=== PATIENT | female | born 1960 | race Caucasian/White ===

== ENCOUNTER 2020-08-06 11:22 | Emergency (ER) | payer MEDICARE, SELFPAY ==
--- NOTE | 2020-08-06 11:47 | ED.GENADULT ---
HPI - General Adult General Chief complaint: Dental/Oral Stated complaint: Infection in Jaw Source: patient Mode of arrival: ambulatory Limitations: no limitations History of Present Illness HPI narrative: Sylwia is a 60F with no significant PMH admitted that presented to the ED with worsening left lower dental pain and swelling. She has an implant and gets frequent infections. Over the last few days she has had increasing pain and swelling as well as nausea. No dysphagia, trouble breathing, vomiting, CP or SOB. Related Data Allergies Allergy/AdvReac Type Severity Reaction Status Date / Time amoxicillin Allergy Rash Verified 08/06/20 12:06 Iodinated Contrast Media Allergy Rash Verified 08/06/20 12:06 tetracycline Allergy Swelling Verified 08/06/20 12:06 erythromycin base AdvReac Diarrhea Verified 08/06/20 12:06 [From Erythrocin] ibuprofen AdvReac Diarrhea Verified 08/06/20 12:06 methylprednisolone AdvReac Diarrhea Verified 08/06/20 12:06 Review of Systems Constitutional: Constitutional: Denies chills and Denies fever(s) Eyes: Eyes: Reports no additional eye complaints ENT: Reports as per HPI Cardiovascular: Cardiovascular: Reports no additional cardiovascular complaints Respiratory: Respiratory: Reports no additional respiratory complaints Gastrointestinal: Gastrointestinal: Reports no additional gastrointestinal complaints Genitourinary: Genitourinary: Reports no additional female genitourinary complaints Musculoskeletal: Musculoskeletal: Reports no additional musculoskeletal complaints Integumentary/Breasts: Skin/Breast: Reports system reviewed and no additional complaints, except as docu Neurologic: Reports system reviewed and no additional complaints, except as documented Psychiatric: Psychiatric: Reports no additional psychiatric complaints Endocrine: Endocrine: Reports no additional endocrine complaints Hematologic/Lymphatic: Hematologic/Lymphatic: Reports no additional hematologic/lymphatic complaints Allergic/Immunologic: Allergic/Immunologic: Reports no additional allergic/immunologic complaints Exam Const: General: no acute distress and alert Orientation/consciousness: patient oriented x3 Limitations: No altered mental status HENMT: Other: Normocephalic, atraumatic. Left cheek was warm, swollen and TTP. She has poor dentition on the left lower jaw that is TTP and swollen. Bilateral submandibular lymphadenopathy Eyes: Conjunctivae: conjunctivae normal Neck: Neck: normal visual inspection and lymphadenopathy (anterior cervical lymphadenopathy ) Chest: Chest palpation & inspection: normal inspection of the chest Resp: Effort & Inspection: normal respiratory effort Cardio: Rate: regular rate GI: Inspection: non-distended GI Palp: Yes Soft to palpation and No Tenderness to palpation present (GI) Skin: General skin exam: normal color Rashes: no rashes Neuro: General: patient oriented x3 and moves all extremities Extrem: General: normal to inspection Psych: Appearance: grossly normal Mental Status: mental status grossly normal Course Course Emergency Course: Sylwia was evaluated. She was given toradol for pain and a dose of clindamycin. A script was sent to the pharmacy for [place] and Clindamycin. She was discharged and instructed to f/u with her Dentist. Discharge Plan Discharge Clinical Impression: Abscess, dental Patient Disposition: Home, Self-Care Condition: Stable Instructions: Dental Abscess (ED) Additional Instructions: Please return to the ED for any new, concerning, or worsening infections. Prescriptions: New clindamycin HCl 300 mg capsule 300 mg PO Q8H Qty: 15 RF: 0 hydrocodone-acetaminophen [[place]] 5-325 mg tablet 1 tablet PO Q8H PRN (Reason: pain) Qty: 10 RF: 0 Follow-up/Referrals: UNKNOWN,DOCTOR [Primary Care Provider] - Stand Alone Forms: Work/School Release IP
[2020-08-06 11:58] VITALS: BP 160/77; PULSE 59; RESP 18; TEMP 36.7; O2SAT 95
[2020-08-06] MEDS: KETOROLAC 30 MG/ML VIAL (*BKC) IM (12:21)
[2020-08-06] MEDS: CLINDAMYCIN HCL 150 MG CAP 450 MG PO (12:22)
[2020-08-06 12:55] VITALS: BP 147/93; PULSE 55; RESP 20; O2SAT 95
== END 2020-08-06 13:03 | disposition home or self-care (01) ==
PROVIDERS: Emergency Provider Family Medicine
DX: K04.7 Periapical abscess without sinus (principal)
CPT/HCPCS: 96372; 99283; A9270; J1885

== ENCOUNTER 2021-09-09 14:00 | Emergency (ER) | payer MEDICARE, MEDICAID, SELFPAY ==
[2021-09-09 14:05] VITALS: BP 164/91; PULSE 67; RESP 18; TEMP 35.7; O2SAT 97
--- NOTE | 2021-09-09 14:10 | ED.NAVMDI ---
HPI - Nausea/Vomiting/Diarrhea General Chief complaint: Weakness Stated complaint: nausea/blood pressure high/weakness/not eating Source: patient and RN notes reviewed Mode of arrival: ambulatory Limitations: no limitations History of Present Illness MD elicited complaint: nausea Onset (ago): week(s) (1) Associated nausea: Yes Associated abdominal pain: No Severity: moderate Exacerbating factors: eating Relieving factors: none Associated symptoms: headaches, loss of appetite, malaise, dysuria ( Only increased urinary frequency with small amounts) and other (elevated BP) Related Data Home Medications Medication Instructions Recorded Confirmed amlodipine 5 mg PO DAILY 09/09/21 09/09/21 Allergies Allergy/AdvReac Type Severity Reaction Status Date / Time amoxicillin Allergy Rash Verified 08/06/20 12:06 Iodinated Contrast Media Allergy Rash Verified 08/06/20 12:06 tetracycline Allergy Swelling Verified 08/06/20 12:06 erythromycin base AdvReac Diarrhea Verified 08/06/20 12:06 [From Erythrocin] ibuprofen AdvReac Diarrhea Verified 08/06/20 12:06 methylprednisolone AdvReac Diarrhea Verified 08/06/20 12:06 Review of Systems Review of Systems: All systems reviewed & are unremarkable except as noted in HPI and below Constitutional: Constitutional: Denies chills and Denies fever(s) ENT: Denies sore throat Respiratory: Respiratory: Denies cough and Denies dyspnea Gastrointestinal: Gastrointestinal: Denies diarrhea and Denies vomiting Genitourinary: Genitourinary: Reports nocturia and Denies dysuria Musculoskeletal: Musculoskeletal: Denies myalgias PMFSH Past Medical History Medical History (Updated 09/09/21 @ 16:39 by Abdon Schwartz MD) Hypertension Surgical History Surgical History (Updated 09/09/21 @ 14:45 by Abdon Schwartz MD) H/O neck surgery H/O splenectomy H/O: hysterectomy History of back surgery Hx of cholecystectomy Social History Social History (Updated 09/09/21 @ 14:45 by Abdon Schwartz MD) Smoking packs per day: 1 Smoking cigarettes per day: 20.0 Smoking status: Current every day smoker Tobacco type: cigarettes Alcohol intake: never Substance use: current Substance use type: marijuana Exam Const: General: healthy appearing, no acute distress and alert Nutritional Appearance: well nourished and thin Orientation/consciousness: patient oriented x3 HENMT: Head: normal to inspection Ears: external ears normal Eyes: Cornea: corneas normal Pupils: Equal, round and reactive pupils present EOM: EOMs intact bilaterally Resp: Effort & Inspection: normal respiratory effort Auscultation: clear to auscultation bilaterally Cardio: Rate: regular rate Rhythm: regular rhythm GI: GI Palp: Yes Soft to palpation, No Tenderness to palpation present (GI) and No Guarding due to palpation present (GI) Auscultation: normal bowel sounds Back/Spine/Pelvis: Cervical Spine: cervical ROM normal Thoracic/Lumbar Spine: thoraco-lumbar ROM normal Skin: General skin exam: normal color Rashes: no rashes Neuro: General: patient oriented x3, moves all extremities, no meningeal signs, no focal motor deficits and CN's II-XI intact bilaterally Speech: normal speech Gait exam (Neuro): Normal gait present Extrem: General: normal to inspection and no clubbing, cyanosis or edema Psych: Appearance: grossly normal and well kempt Mental Status: mental status grossly normal Affect: normal affect Attitude: cooperative Thought content: Yes Normal thought content present Course Vital Signs Vital signs: Vital Signs Temperature 35.7 C L 09/09/21 14:05 Pulse Rate 67 09/09/21 14:05 Respiratory Rate 18 09/09/21 14:05 Blood Pressure 164/91 H 09/09/21 14:05 Pulse Oximetry 97 09/09/21 14:05 Temperature 36.4 C 09/09/21 16:52 Pulse Rate 76 09/09/21 16:52 Respiratory Rate 20 09/09/21 16:52 Blood Pressure 135/91 H 09/09/21 16:52 Pulse Oximetry 97 09/09/21 16
[2021-09-09 15:04] LABS: Add Urine Microscopic? YES; Appearance Urine Clear (Clear); Bilirubin Urine Negative (Negative); Blood Urine Negative (Negative); Color Urine Light Yellow (Yellow); Glucose Urine UA Negative (Negative); Ketones Urine Negative (Negative); Leukocyte Esterase Ur Trace LEU/UL (Negative); Nitrate Urine Negative (Negative); Protein Urine Negative (Negative); Specific Grav Ur <= 1.005 (1.010-1.020); Urobilinogen Urine 0.2 mg/dL (0.2-1.0)
[2021-09-09] MEDS: PROMETHAZINE HCL 25 MG/ML AMPUL IM (15:07)
[2021-09-09 15:13] LABS: Bacteria Urine Trace /hpf; RBC Urine 0-2 /hpf (0-2); Squamous Epithelial Cell Urine Rare /hpf (Few); WBC Urine 0-3 /hpf (0-3)
[2021-09-09 15:14] LABS: Hematocrit 45.1 % (35.0-49.0); Hemoglobin 14.8 g/dL (12.0-15.0); Mean Corpuscular HGB Conc 32.8 g/dL (32.0-36.0); Mean Corpuscular Hemoglobin 34.1 pg (27.0-31.0); Mean Corpuscular Volume 103.9 fL (78.0-102.0); Mean Platelet Volume 12.3 fl (9.2-11.8); Platelet Count Result 46 K/mm3 (150-420); Red Blood Count 4.34 M/mm3 (4.20-5.40); Red Cell Distribution Width 12.6 % (11.6-14.4); White Blood Count 12.9 K/mm3 (4.8-10.8)
[2021-09-09 15:38] LABS: SARS-CoV-2 RNA PCR Negative (Negative)
[2021-09-09 15:44] LABS: Band Neutrophils Percent 0 % (0-6); Basophils Percent Manual 0 % (0-1); Eosinophils Percent Manual 0 % (1-6); Lymphocytes Absolute Manual 7.61 K/mm3 (1.1-4.5); Lymphocytes Percent Manual 59 % (18-44); Monocytes Absolute Manual 0.64 K/mm3 (0.1-0.90); Monocytes Percent Manual 5 % (3-9); Neutrophils Absolute Manual 4.64 K/mm3 (1.7-7.2); Neutrophils Percent Manual 36 % (46-73); Total Cells Counted 100
[2021-09-09 15:46] LABS: Platelet Estimate Decreased (Adequate)
[2021-09-09 15:58] LABS: Alanine Aminotransferase 29 U/L (14-59); Albumin Level 4.1 g/dL (3.4-5.0); Alkaline Phosphatase 102 U/L (46-116); Anion Gap 15 mmol/L (8-16); Aspartate Amino Transferase 33 U/L (15-37); Bilirubin,Total 0.5 mg/dL (0.00-1.00); Blood Urea Nitrogen 14 mg/dL (7-18); Calcium 9.4 mg/dL (8.5-10.1); Carbon Dioxide 22 mmol/L (21-32); Chloride 99 mmol/L (98-108); Estimated Glomerular Filt Rate > 60; Ferritin 113 ng/mL (8-252); Glucose 98 mg/dL (70-99); Magnesium 2.3 mg/dL (1.8-2.4); Osmolality Calculated 282 mOsm/kg (285-295); Potassium 5.1 mmol/L (3.5-5.1); Sodium 136 mmol/L (136-145); Total Protein 7.8 g/dL (6.4-8.2)
[2021-09-09 16:02] LABS: CRP < 0.2 mg/dL (0.0-0.9)
[2021-09-09 16:52] VITALS: BP 135/91; PULSE 76; RESP 20; TEMP 36.4; O2SAT 97
== END 2021-09-09 16:45 | disposition home or self-care (01) ==
PROVIDERS: Emergency Provider Emergency Medicine; PCP Family Medicine
DX: A08.4 Viral intestinal infection, unspecified (principal); Z20.822 Contact with and (suspected) exposure to COVID-19; I10 Essential (primary) hypertension; F17.200 Nicotine dependence, unspecified, uncomplicated
CPT/HCPCS: 36415; 80053; 81001; 82728; 83735; 85025; 86140; 96372; 99283; C9803; J2550; U0003; U0005

== ENCOUNTER 2022-06-30 19:23 | Emergency (ER) | payer MEDICARE, MEDICAID, SELFPAY ==
--- NOTE | ~2022-06-30 | XR_ITS ---
EXAMINATION: XR chest 1V portable Exam Date/Time: 06/30/2022 21:10 JAZZ SINGER HISTORY: dyspnea, cough Comparison: None available. RESULT: Lines, tubes, and devices: Partially visualized cervical fusion hardware. Cholecystectomy clips. Lungs and pleura: 12 mm nodular opacity projecting over the left inferior lung. Cardiomediastinal silhouette: Unremarkable. Other: No acute osseous or upper abdominal finding. IMPRESSION: No acute cardiopulmonary process. Likely 12 mm left lower lung pulmonary nodule, recommend comparison to outside studies, if available, to evaluate stability. If comparisons aren't available, recommend low-dose noncontrast CT of the chest for further evaluation. Reviewed, dictated and finalized at location K. SINGER IMPRESSION: No acute cardiopulmonary process. Likely 12 mm left lower lung pulmonary nodule , recommend comparison to outside studies, if available, to evaluate stability. If comparisons aren't available, recommend low-dose noncontrast CT of the ches t for further evaluation.
[2022-06-30 19:30] VITALS: BP 150/90; PULSE 66; RESP 16; TEMP 37; O2SAT 98
--- NOTE | 2022-06-30 21:06 | ED.GENADULT ---
HPI - General Adult General Chief complaint: Upper Respiratory Infection Stated complaint: difficulty breathing, sinus infection Time Seen by Provider: 06/30/22 20:19 History of Present Illness HPI narrative: Sylwia is a 62F with a PMH of neck surgery, hysterectomy, seasonal allergies, tobacco abuse and HTN that presented to the ED with a few concerns. She has had some SOB, coughing, burning eyes off and on for 6 weeks. She could not get into her PCP. She denies any CP, lightheadedness, nausea or vomiting. No sick contacts. Related Data Allergies Allergy/AdvReac Type Severity Reaction Status Date / Time amoxicillin Allergy Rash Verified 08/06/20 12:06 Iodinated Contrast Media Allergy Rash Verified 08/06/20 12:06 tetracycline Allergy Swelling Verified 08/06/20 12:06 erythromycin base AdvReac Diarrhea Verified 08/06/20 12:06 [From Erythrocin] ibuprofen AdvReac Diarrhea Verified 08/06/20 12:06 methylprednisolone AdvReac Diarrhea Verified 08/06/20 12:06 red dye AdvReac Rash Verified 06/30/22 20:50 sulfamethoxazole AdvReac Rash Verified 06/30/22 20:50 [From Bactrim] trimethoprim [From Bactrim] AdvReac Rash Verified 06/30/22 20:50 Review of Systems Review of Systems: All systems reviewed & are unremarkable except as noted in HPI and below PMFSH Past Medical History Medical History Hypertension Surgical History Surgical History H/O neck surgery H/O splenectomy H/O: hysterectomy History of back surgery Hx of cholecystectomy Social History Social History Smoking packs per day: 1 Smoking cigarettes per day: 20.0 Smoking status: Current every day smoker Tobacco type: cigarettes Alcohol intake: never Substance use: current Substance use type: marijuana Exam Const: General: healthy appearing and no acute distress Nutritional Appearance: well nourished Orientation/consciousness: patient oriented x3 HENMT: Head: normal to inspection Ears: external ears normal Face/Nose/Sinus: Normal external nose present Eyes: Conjunctivae: conjunctivae normal Pupils: Equal, round and reactive pupils present EOM: EOMs intact bilaterally Neck: Neck: normal visual inspection Chest: Chest palpation & inspection: normal inspection of the chest Resp: Effort & Inspection: normal respiratory effort Other: Diffuse scant wheezing but good air flow Cardio: Rate: regular rate Rhythm: regular rhythm GI: Inspection: non-distended GI Palp: Yes Soft to palpation, No Tenderness to palpation present (GI) and No Guarding due to palpation present (GI) Skin: General skin exam: normal color Neuro: General: patient oriented x3 and moves all extremities Extrem: General: normal to inspection Psych: Mental Status: mental status grossly normal Course Course Emergency Course: ordered swabs, labs and CXR EXAMINATION:? XR chest 1V portable Exam Date/Time:? 06/30/2022 21:10 [employer]ON SALES CONSULTANT HISTORY: dyspnea, cough ? Comparison:? None available. RESULT: Lines, tubes, and devices:? Partially visualized cervical fusion hardware. Cholecystectomy clips. Lungs and pleura:? 12 mm nodular opacity projecting over the left inferior lung. Cardiomediastinal silhouette:? Unremarkable. Other:? No acute osseous or upper abdominal finding. IMPRESSION: No acute cardiopulmonary process. Likely 12 mm left lower lung pulmonary nodule, recommend comparison to outside studies, if available, to evaluate stability. If comparisons aren't available, recommend low-dose noncontrast CT of the chest for further evaluation. Labs showed leukocytosis but were otherwise normal. CXR showed the nodule. I discussed with her how she needs to see her PCP about this to have it compared to previous imaging or get an out patient CT. With regards to her cough, wheezing, congestion and smoking history sh
[2022-06-30 21:28] LABS: Hematocrit 39.8 % (35.0-49.0); Hemoglobin 13.2 g/dL (12.0-15.0); Mean Corpuscular HGB Conc 33.2 g/dL (32.0-36.0); Mean Corpuscular Hemoglobin 32.8 pg (27.0-31.0); Mean Corpuscular Volume 98.8 fL (78.0-102.0); Mean Platelet Volume 11.2 fl (9.2-11.8); Platelet Count Result 321 K/mm3 (150-420); Red Blood Count 4.03 M/mm3 (4.20-5.40); Red Cell Distribution Width 13.2 % (11.6-14.4); White Blood Count 17.4 K/mm3 (4.8-10.8)
[2022-06-30 21:40] LABS: Strep Group A RT-PCR Negative (Negative)
[2022-06-30 21:46] LABS: Influenza A QL RT-PCR Negative (Negative); Influenza B QL RT-PCR Negative (Negative); SARS-CoV-2 RNA PCR Negative (Negative)
[2022-06-30 21:49] LABS: Band Neutrophils Percent 0 % (0-6); Basophils Absolute Manual 0.17 K/mm3 (0-0.1); Basophils Percent Manual 1 % (0-1); Eosinophils Absolute Manual 0.17 K/mm3 (0.02-0.5); Eosinophils Percent Manual 1 % (1-6); Lymphocytes Absolute Manual 6.43 K/mm3 (1.1-4.5); Lymphocytes Percent Manual 37 % (18-44); Monocytes Absolute Manual 1.91 K/mm3 (0.1-0.90); Monocytes Percent Manual 11 % (3-9); Neutrophils Percent Manual 50 % (46-73); Platelet Estimate Adequate (Adequate); Total Cells Counted 100
[2022-06-30 21:54] LABS: Alanine Aminotransferase 17 U/L (14-59); Albumin Level 3.7 g/dL (3.4-5.0); Alkaline Phosphatase 84 U/L (46-116); Anion Gap 5 mmol/L (8-16); Aspartate Amino Transferase 12 U/L (15-37); Bilirubin,Total 0.2 mg/dL (0.00-1.00); Blood Urea Nitrogen 10 mg/dL (7-18); Calcium 8.9 mg/dL (8.5-10.1); Carbon Dioxide 31 mmol/L (21-32); Chloride 104 mmol/L (98-108); Estimated Glomerular Filt Rate > 60; Glucose 97 mg/dL (70-99); Osmolality Calculated 289 mOsm/kg (285-295); Potassium 4.5 mmol/L (3.5-5.1); Sodium 140 mmol/L (136-145); Total Protein 7.8 g/dL (6.4-8.2)
[2022-06-30 21:57] VITALS: BP 130/89; PULSE 62; RESP 16; O2SAT 96
[2022-06-30] MEDS: AZITHROMYCIN 250 MG TABLET 500 MG PO (22:06)
[2022-06-30] MEDS: predniSONE 40 MG, predniSONE 10 MG 50 MG PO (22:13)
[2022-06-30 22:35] VITALS: BP 140/90; PULSE 70; RESP 20; TEMP 36.6; O2SAT 99
== END 2022-06-30 22:36 | disposition home or self-care (01) ==
PROVIDERS: Emergency Provider Family Medicine
DX: J44.9 Chronic obstructive pulmonary disease, unspecified (principal); R91.1 Solitary pulmonary nodule; I10 Essential (primary) hypertension; F17.200 Nicotine dependence, unspecified, uncomplicated
CPT/HCPCS: 36415; 71045; 80053; 85025; 87502; 87651; 99283; A9270; J7512; U0003; U0005

== ENCOUNTER 2022-10-30 12:15 | Outpatient (CLI) | payer MEDICARE, MEDICAID, SELFPAY ==
--- NOTE | ~2022-10-30 | XR_ITS ---
Lumbosacral Spine: AP and lateral views Clinical History: Pain Findings: The normal lordotic curve is maintained. The vertebral bodies and posterior elements are i ntact. The intervertebral disc spaces are preserved. Facet arthropathy is present from L3 through S1 . The sacroiliac joints are normally outlined. Impression: Facet joint degenerative change, as above. Reviewed, dictated and finalized at location . BRAKE TECHNICIAN Impression: Facet joint degenerative change, as above.
--- NOTE | ~2022-10-30 | XR_ITS ---
Cervical Spine: AP, lateral, open-mouth views Clinical History: Pain Findings: No acute fracture identified. Suspected grade 1 anterolisthesis of C7 over T1. There is ant erior fusion hardware extending from C4 through C7, anterior plate and screws, as well as fusion acro ss the C4-C5, C5-C6 and C6-C7 disc spaces. There is mild degenerative disc change at remaining visual ized disc spaces. There is facet joint degenerative change at C2-C3 and C3-C4. Pre-vertebral soft tis sues are unremarkable. Impression: Anterior fusion from C4 to C7, as detailed above. Suspected grade 1 anterolisthesis of C7 over T1. Mild degenerative spondylitic changes, as above. Reviewed, dictated and finalized at location M. ODUCTION MACHINE LOADER Impression: Anterior fusion from C4 to C7, as detailed above. Suspected grade 1 anterolisthesis of C7 over T1. Mild degenerative spondylitic changes, as above.
== END 2022-10-30 12:16 | disposition home or self-care (01) ==
PROVIDERS: PCP Registered Nurse; Visit Provider Registered Nurse
DX: M54.2 Cervicalgia (principal); M54.50 Low back pain, unspecified; Z98.1 Arthrodesis status; M43.02 Spondylolysis, cervical region
CPT/HCPCS: 72040; 72100